=== PATIENT | female | born 1955 | race Caucasian/White ===

== ENCOUNTER 2017-05-02 14:01 | Emergency (ER) | payer OTHER ==
[~2017-05-02] VITALS: Ht 162.6 cm; Wt 104.3 kg
[~2017-05-02 14:01] MED LIST: ACYC400 PO; ALBU3IS INH; ASPI81EC; CALCA500CH; CIPR500 PO; Citrate Of Mag300 ML PO; Colace100 MG PO; Cyclobenzaprine5 MG PO; FEXO60 PO; FLUSAL1005 INH; FLUSAL2505 INH; GABA600 PO; HYDACE5 PO; HYDR1TAB94 PO; LOPE2C PO; METR500 PO; Nizoral15 GM TOP; Norco 10-325 T1 EACH PO; OXYACE5T PO; PRED10 PO; PSYL5.85P PO; VALCYCLOVIR PO; Ventolin/Prove6.7 GM INH
[2017-05-02 14:33] LABS: BASOPHILS ABSOLUTE AUTO 0.02 K/mm3 (0.00-0.23); BASOPHILS PERCENT AUTO 0 % (0-2); EOSINOPHILS ABSOLUTE AUTO 0.17 K/mm3 (0.00-0.68); EOSINOPHILS PERCENT AUTO 2 % (0-6); Hematocrit 43.7 % (33.0-51.0); Hemoglobin 14.7 g/dL (11.5-16.0); IMMATURE GRAN ABSOLUTE AUTO 0.02 K/mm3 (0.00-0.10); IMMATURE GRAN PERCENT AUTO 0 % (0-1); LYMPHOCYTES ABSOLUTE AUTO 3.01 K/mm3 (0.84-5.20); LYMPHOCYTES PERCENT AUTO 27 % (21-46); MONOCYTES ABSOLUTE AUTO 0.68 K/mm3 (0.16-1.47); MONOCYTES PERCENT AUTO 6 % (4-13); Mean Corpuscular HGB 29.6 pg (26.0-34.0); Mean Corpuscular HGB Conc 33.6 g/dL (31.5-36.5); Mean Corpuscular Volume 88 fL (80-100); Mean Platelet Volume 10.9 fL (9.1-12.4); NEUTROPHILS ABSOLUTE AUTO 7.19 K/mm3 (1.96-9.15); NEUTROPHILS PERCENT AUTO 65 % (41-73); Platelet Count 269 K/mm3 (150-400); RDW Coefficient Variation 14.4 % (11.7-14.2); RDW Standard Deviation 46.4 fL (35.1-46.3); Red Blood Cell Count 4.97 M/mm3 (3.80-5.20); White Blood Cell Count 11.09 K/mm3 (4.00-11.30)
[2017-05-02] MEDS ORDERED: Motion Sickness25 M1 PO (14:35)
[2017-05-02 14:50] LABS: Alanine Aminotransfer (ALT/SGP 30 U/L (12-78); Albumin, Blood 3.3 g/dL (3.4-5.0); Alk Phos 88 U/L (50-136); Anion Gap 5 mmol/L (6-16); Aspartate Aminotrans (AST/SGOT 20 U/L (12-37); Bilirubin, Total 0.4 mg/dL (0.1-1.0); Blood Urea Nitrogen 22 mg/dL (8-24); Bun/Creatinine Ratio 27.6 (12.0-20.0); CO2, Blood 26 mmol/L (21-32); Calcium, Blood 8.7 mg/dL (8.5-10.1); Chloride, Blood 110 mmol/L (98-108); Globulin, Blood 3.3 g/dL (2.2-4.0); Glomerular Filtration Rate >60 (60-); Glucose, Blood 95 mg/dL (70-99); Potassium, Blood 3.8 mmol/L (3.5-5.5); Sodium, Blood 141 mmol/L (136-145); Total Protein, Blood 6.6 g/dL (6.4-8.2); Troponin I <0.015 ng/mL (0.000-0.040)
== END 2017-05-02 15:10 | disposition home or self-care (01) ==
LOC: ER 14:01
PROVIDERS: Emergency Medicine
DX: R42 Dizziness and giddiness (principal); J44.9 Chronic obstructive pulmonary disease, unspecified; Z90.721 Acquired absence of ovaries, unilateral; Z88.6 Allergy status to analgesic agent; Z91.048 Other nonmedicinal substance allergy status; Z79.899 Other long term (current) drug therapy
CPT/HCPCS: 80053; 84484; 85025; 93005; 93010; 96374; 99283; J2405

== ENCOUNTER 2017-05-04 19:05 | Emergency (ER) | payer OTHER, SELFPAY ==
[~2017-05-04] VITALS: Ht 162.6 cm; Wt 103.4 kg
[~2017-05-04 19:05] MED LIST changes: +Motion Sickness25 M1 PO
[2017-05-04 19:47] LABS: BASOPHILS ABSOLUTE AUTO 0.02 K/mm3 (0.00-0.23); BASOPHILS PERCENT AUTO 0 % (0-2); EOSINOPHILS PERCENT AUTO 3 % (0-6); Hematocrit 46.4 % (33.0-51.0); Hemoglobin 15.1 g/dL (11.5-16.0); IMMATURE GRAN ABSOLUTE AUTO 0.02 K/mm3 (0.00-0.10); IMMATURE GRAN PERCENT AUTO 0 % (0-1); LYMPHOCYTES ABSOLUTE AUTO 3.88 K/mm3 (0.84-5.20); LYMPHOCYTES PERCENT AUTO 35 % (21-46); MONOCYTES ABSOLUTE AUTO 0.84 K/mm3 (0.16-1.47); MONOCYTES PERCENT AUTO 8 % (4-13); Mean Corpuscular HGB 29.4 pg (26.0-34.0); Mean Corpuscular HGB Conc 32.5 g/dL (31.5-36.5); Mean Corpuscular Volume 90 fL (80-100); Mean Platelet Volume 11.3 fL (9.1-12.4); NEUTROPHILS ABSOLUTE AUTO 6.17 K/mm3 (1.96-9.15); NEUTROPHILS PERCENT AUTO 55 % (41-73); Platelet Count 296 K/mm3 (150-400); RDW Coefficient Variation 14.6 % (11.7-14.2); RDW Standard Deviation 48.6 fL (35.1-46.3); Red Blood Cell Count 5.13 M/mm3 (3.80-5.20); White Blood Cell Count 11.23 K/mm3 (4.00-11.30)
[2017-05-04 20:10] LABS: Alanine Aminotransfer (ALT/SGP 34 U/L (12-78); Albumin, Blood 3.4 g/dL (3.4-5.0); Alk Phos 108 U/L (50-136); Anion Gap 6 mmol/L (6-16); Aspartate Aminotrans (AST/SGOT 29 U/L (12-37); Bilirubin, Total 0.5 mg/dL (0.1-1.0); Blood Urea Nitrogen 25 mg/dL (8-24); Bun/Creatinine Ratio 30.2 (12.0-20.0); CO2, Blood 26 mmol/L (21-32); Calcium, Blood 8.8 mg/dL (8.5-10.1); Chloride, Blood 110 mmol/L (98-108); Creatinine, Blood 0.83 mg/dL (0.40-1.00); Free Thyroxine 1.06 ng/dL (0.70-1.60); Globulin, Blood 3.3 g/dL (2.2-4.0); Glomerular Filtration Rate >60 (60-); Glucose, Blood 134 mg/dL (70-99); Potassium, Blood 4.1 mmol/L (3.5-5.5); Sodium, Blood 142 mmol/L (136-145); Total Protein, Blood 6.7 g/dL (6.4-8.2); Troponin I <0.015 ng/mL (0.000-0.040)
== END 2017-05-04 20:56 | disposition home or self-care (01) ==
LOC: ER 19:05
PROVIDERS: Internal Medicine
DX: I47.1 Supraventricular tachycardia (principal); F17.200 Nicotine dependence, unspecified, uncomplicated; Z91.048 Other nonmedicinal substance allergy status; Z88.6 Allergy status to analgesic agent; Z79.899 Other long term (current) drug therapy
CPT/HCPCS: 71020; 80053; 84439; 84443; 84484; 85025; 93005; 93010; 99284

== ENCOUNTER 2018-09-07 08:45 | Day surgery (SDC) | payer OTHER ==
[~2018-09-07] VITALS: Ht 162.6 cm; Wt 98.2 kg
[~2018-09-07 08:45] MED LIST changes: +CLARITIN10 MG PO; +Toprol Xl25 MG PO
== END 2018-09-07 10:55 | disposition home or self-care (01) ==
LOC: ORSCSDS 08:45
PROVIDERS: Internal Medicine Gastroenterology
PROC: 0DJD8ZZ Inspection of Lower Intestinal Tract, Via Natural or Artificial Opening Endoscopic (ICD-10-PCS; principal; 2018-09-07 10:00)
DX: Z12.11 Encounter for screening for malignant neoplasm of colon (principal); Z86.010 Personal history of colon polyps; K64.8 Other hemorrhoids; F17.210 Nicotine dependence, cigarettes, uncomplicated; J45.909 Unspecified asthma, uncomplicated; Z79.899 Other long term (current) drug therapy
CPT/HCPCS: J2704; J7120

== ENCOUNTER 2020-01-12 14:06 | Emergency (ER) | payer OTHER ==
[~2020-01-12] VITALS: Ht 162.6 cm; Wt 104.3 kg
[~2020-01-12 14:06] MED LIST changes: +CETI5 PO
[2020-01-12 14:43] LABS: BASOPHILS ABSOLUTE AUTO 0.06 K/mm3 (0.00-0.23); BASOPHILS PERCENT AUTO 1 % (0-2); EOSINOPHILS ABSOLUTE AUTO 0.16 K/mm3 (0.00-0.68); EOSINOPHILS PERCENT AUTO 2 % (0-6); Hematocrit 51.5 % (33.0-51.0); Hemoglobin 16.9 g/dL (11.5-16.0); IMMATURE GRAN ABSOLUTE AUTO 0.03 K/mm3 (0.00-0.10); IMMATURE GRAN PERCENT AUTO 0 % (0-1); LYMPHOCYTES ABSOLUTE AUTO 3.06 K/mm3 (0.84-5.20); LYMPHOCYTES PERCENT AUTO 28 % (21-46); MONOCYTES ABSOLUTE AUTO 0.73 K/mm3 (0.16-1.47); MONOCYTES PERCENT AUTO 7 % (4-13); Mean Corpuscular HGB 28.7 pg (26.0-34.0); Mean Corpuscular HGB Conc 32.8 g/dL (31.5-36.5); Mean Corpuscular Volume 87 fL (80-100); Mean Platelet Volume 10.9 fL (9.1-12.4); NEUTROPHILS ABSOLUTE AUTO 6.96 K/mm3 (1.96-9.15); NEUTROPHILS PERCENT AUTO 63 % (41-73); Platelet Count 322 K/mm3 (150-400); RDW Coefficient Variation 12.9 % (11.7-14.2); RDW Standard Deviation 41.4 fL (35.1-46.3); Red Blood Cell Count 5.89 M/mm3 (3.80-5.20)
[2020-01-12 15:04] LABS: Alanine Aminotransfer (ALT/SGP 25 U/L (12-78); Albumin, Blood 3.6 g/dL (3.4-5.0); Albumin/Globulin Ratio 0.9 (0.8-1.8); Alk Phos 108 U/L (50-136); Anion Gap 9 mmol/L (6-16); Aspartate Aminotrans (AST/SGOT 17 U/L (12-37); Bilirubin, Total 0.6 mg/dL (0.1-1.0); Blood Urea Nitrogen 14 mg/dL (8-24); Bun/Creatinine Ratio 22.7 (12.0-20.0); CO2, Blood 22 mmol/L (21-32); Chloride, Blood 111 mmol/L (98-108); Creatinine, Blood 0.62 mg/dL (0.40-1.00); Globulin, Blood 3.8 g/dL (2.2-4.0); Glomerular Filtration Rate >60 (60-); Glucose, Blood 114 mg/dL (70-99); Sodium, Blood 142 mmol/L (136-145); Total Protein, Blood 7.4 g/dL (6.4-8.2); Troponin I <0.015 ng/mL (0.000-0.040)
== END 2020-01-12 17:06 | disposition home or self-care (01) ==
LOC: ER 14:06
PROVIDERS: Physician Assistant
DX: I48.0 Paroxysmal atrial fibrillation (principal); Z88.8 Allergy status to other drugs, medicaments and biological substances; F17.210 Nicotine dependence, cigarettes, uncomplicated
CPT/HCPCS: 36415; 71046; 80053; 83880; 84484; 85025; 93005; 93010; 99285-25

== ENCOUNTER 2022-03-02 12:44 | Inpatient (IN) | payer OTHER ==
[~2022-03-02] VITALS: Ht 162.6 cm; Wt 108.0 kg
[~2022-03-02 12:44] MED LIST changes: +ADALAT CC30 M1 PO; +ELIQUIS5 M3 PO; +LASIX20 M2 PO; +METO25ER PO; +NEURONTIN300 MG PO; +POTCHL20ER PO; -Toprol Xl25 MG PO
[2022-03-02 13:32] LABS: BASOPHILS ABSOLUTE AUTO 0.05 K/mm3 (0.00-0.23); BASOPHILS PERCENT AUTO 0 % (0-2); EOSINOPHILS ABSOLUTE AUTO 0.23 K/mm3 (0.00-0.68); EOSINOPHILS PERCENT AUTO 2 % (0-6); Hematocrit 48.3 % (33.0-51.0); Hemoglobin 15.9 g/dL (11.5-16.0); IMMATURE GRAN ABSOLUTE AUTO 0.05 K/mm3 (0.00-0.10); IMMATURE GRAN PERCENT AUTO 0 % (0-1); LYMPHOCYTES ABSOLUTE AUTO 2.24 K/mm3 (0.84-5.20); LYMPHOCYTES PERCENT AUTO 16 % (21-46); MONOCYTES PERCENT AUTO 7 % (4-13); Mean Corpuscular HGB 27.7 pg (26.0-34.0); Mean Corpuscular HGB Conc 32.9 g/dL (31.5-36.5); Mean Corpuscular Volume 84 fL (80-100); Mean Platelet Volume 10.6 fL (9.1-12.4); NEUTROPHILS ABSOLUTE AUTO 10.27 K/mm3 (1.96-9.15); NEUTROPHILS PERCENT AUTO 74 % (41-73); Platelet Count 273 K/mm3 (150-400); RDW Coefficient Variation 17.9 % (11.7-14.2); RDW Standard Deviation 54.2 fL (35.1-46.3); Red Blood Cell Count 5.75 M/mm3 (3.80-5.20); White Blood Cell Count 13.84 K/mm3 (4.00-11.30)
[2022-03-02 13:45] LABS: Albumin, Blood 3.3 g/dL (3.4-5.0); Albumin/Globulin Ratio 0.8 (0.8-1.8); Bilirubin, Total 1.8 mg/dL (0.1-1.0); Bun/Creatinine Ratio 22.3 (12.0-20.0); Calcium, Blood 9.2 mg/dL (8.5-10.1); Creatinine, Blood 0.76 mg/dL (0.40-1.00); Potassium, Blood 4.4 mmol/L (3.5-5.5); Total Protein, Blood 7.3 g/dL (6.4-8.2)
[2022-03-02] MEDS ORDERED: FORMOTEROL20 MCG/2 M INH (15:45)
[2022-03-02 17:00] LABS: Influenza A, PCR NEGATIVE (NEGATIVE); Influenza B, PCR NEGATIVE (NEGATIVE); Resp Syncytial Virus, PCR NEGATIVE (NEGATIVE); SARS-Cov-2 (COVID-19) PCR, MMC NEGATIVE (NEGATIVE)
[2022-03-03 04:25] LABS: BASOPHILS ABSOLUTE AUTO 0.01 K/mm3 (0.00-0.23); BASOPHILS PERCENT AUTO 0 % (0-2); EOSINOPHILS PERCENT AUTO 0 % (0-6); Hematocrit 45.5 % (33.0-51.0); Hemoglobin 14.7 g/dL (11.5-16.0); IMMATURE GRAN ABSOLUTE AUTO 0.03 K/mm3 (0.00-0.10); IMMATURE GRAN PERCENT AUTO 0 % (0-1); LYMPHOCYTES ABSOLUTE AUTO 0.86 K/mm3 (0.84-5.20); LYMPHOCYTES PERCENT AUTO 11 % (21-46); MONOCYTES ABSOLUTE AUTO 0.06 K/mm3 (0.16-1.47); MONOCYTES PERCENT AUTO 1 % (4-13); Mean Corpuscular HGB 27.3 pg (26.0-34.0); Mean Corpuscular HGB Conc 32.3 g/dL (31.5-36.5); Mean Corpuscular Volume 84 fL (80-100); Mean Platelet Volume 10.3 fL (9.1-12.4); NEUTROPHILS ABSOLUTE AUTO 6.84 K/mm3 (1.96-9.15); NEUTROPHILS PERCENT AUTO 88 % (41-73); Platelet Count 235 K/mm3 (150-400); RDW Coefficient Variation 17.3 % (11.7-14.2); RDW Standard Deviation 53.6 fL (35.1-46.3); Red Blood Cell Count 5.39 M/mm3 (3.80-5.20)
[2022-03-03 04:51] LABS: Albumin, Blood 2.8 g/dL (3.4-5.0); Albumin/Globulin Ratio 0.8 (0.8-1.8); Bilirubin, Total 1.6 mg/dL (0.1-1.0); Bun/Creatinine Ratio 24.4 (12.0-20.0); Calcium, Blood 8.6 mg/dL (8.5-10.1); Creatinine, Blood 0.74 mg/dL (0.40-1.00); Globulin, Blood 3.5 g/dL (2.2-4.0); Potassium, Blood 4.1 mmol/L (3.5-5.5); Total Protein, Blood 6.3 g/dL (6.4-8.2)
[2022-03-03] MEDS ORDERED: NEBULI INH (09:43)
[2022-03-03] MEDS ORDERED: ZYRTEC10 M2 PO (09:47)
[2022-03-03] MEDS ORDERED: IPRAT-ALBUT 0.5-3 ML INH (09:50)
[2022-03-03] MEDS ORDERED: Vitamin D1000 UNI1 PO (09:51)
--- NOTE | 2022-03-03 09:52 | NUR ---
SUMMARY PT ADMITTED DURING SHIFT WITH TELE ORDERS SECONDARY TO CARDIAC HX AND AFIB WITH RVR ON ARRIVAL TO ER.PT HAS HX COPD AND SLEEP APNEA. PT WORE O2 LAST NIGHT SHE COULD NOT TOLERATE.
--- NOTE | 2022-03-03 14:30 | NUR ---
ELEVATED HR PER DAMPENER JEROME HUERTA PT'S HR HAS BEEN RANGING FROM 110-125 SINCE APPROXIMATELY 1330. PT DENIES CHEST PAIN AND OTHER VS ARE STABLE. DR. MIXON NOTIED OF INCREASE IN HR AND PLAN TO GIVE LOPRESSOR PER ORDER, BASED ON JEROME HUERTA STATING PT WAS SUSTAINING 113-120. UPON ENTERING ROOM TO GIVE MEDICATION PT'S HR WAS NOTED TO BE SLOWER ON CONTINUOUS PULSE OX THAN REPORTED. JEROME WAS CONTACTED AND HE REPORTED HR WAS CURRENTLY AVERAGING 110. DR. MIXON NOTIFIED AND STATED OK TO HOLD ON GIVING LOPRESSOR AT THIS TIME SINCE HR <120.
--- NOTE | 2022-03-03 14:38 | NUR ---
DR. MIXON NOTIFIED THAT PT IS REQUESTING A DOSE OF LASIX AND POTASSIUM TO START TODAY INSTEAD OF TOMORROW. DR. MIXON STATED HE WOULD REVIEW MEDICATIONS AND PLACE AND ORDER APPROPRIATE.
--- NOTE | 2022-03-03 19:28 | NUR ---
SHIFT SUMMARY PT REMAINS OVERNIGHT FOR POSSIBLE HERNIA REPAIR TOMORROW. PT IS GETTING MEDICATIONS FOR COPD EXACERBATION. PT IS A SBA WHEN OOB. PT HAS HAD ELEVATED HR THIS SHIFT ESPECIALLY WITH ACTIVITY, DR. KHAN IS AWARE. PT ASYMPTOMATIC OF ELEVATED HR. REPORT GIVEN TO CARLOS A BANDA.
--- NOTE | 2022-03-04 04:31 | NUR ---
SUMMARY PT HAS NO NEW ISSUES. PT DENIES ABD DISCOMFORT. PT REPORTS PASSING FLATUS. PT HAS BEEN VOIDING WELL IN THE BATHROOM. PT HAS BEEN USING HER HOME CPAP AND SLEEPING WELL. PT DENIES N/V AT THIS TIME. PT CURRENTLY AWAKE IN NO DISTRESS. CALL LIGHT IN REACH.
--- NOTE | 2022-03-04 11:45 | NUR ---
THE PATIENT WAS BROUGHT TO DAY SURGERY FOR HER PROCEDURE
--- NOTE | 2022-03-04 18:12 | NUR ---
SHIFT SUMMARY POD0 ABD HERNIA REPAIR, A/OX4, VSS, TOLERATING PO AFTER SURGERY, AMBULATING c SBA IN ROOM D/T SOB c EXERTION, PAIN MANAGED PER EMAR. PT RETURNED FROM PACU WITH ABD BINDER IN PLACE KEEPING NON ADHERANT DRESSING IN PLACE OVER LOWER ABD MIDLINE INCISION, ON 2L VIA NC c SATS > 92%. NO DRAINS NOTED. NO ACUTE EVENTS THIS SHIFT, CALL LIGHT IN REACH, WILL CTM AND REPORT TO ONCOMING NOC RN.
--- NOTE | 2022-03-05 05:42 | NUR ---
SUMMARY PT PAIN MANAGED WELL. PT AMBULATORY AND VOIDING WITHOUT ISSUE. PT DRESSING IS C/D/I. PT HAS SLEPT WELL WITH HER CPAP. PT CURRENTLY AWAKE AND IN GOOD DPIRITS. CALL [facility] IN REACH.
[2022-03-05 06:04] LABS: BASOPHILS ABSOLUTE AUTO 0.01 K/mm3 (0.00-0.23); BASOPHILS PERCENT AUTO 0 % (0-2); EOSINOPHILS ABSOLUTE AUTO 0.02 K/mm3 (0.00-0.68); EOSINOPHILS PERCENT AUTO 0 % (0-6); Hemoglobin 13.5 g/dL (11.5-16.0); IMMATURE GRAN ABSOLUTE AUTO 0.08 K/mm3 (0.00-0.10); IMMATURE GRAN PERCENT AUTO 0 % (0-1); LYMPHOCYTES ABSOLUTE AUTO 2.12 K/mm3 (0.84-5.20); LYMPHOCYTES PERCENT AUTO 12 % (21-46); MONOCYTES ABSOLUTE AUTO 1.58 K/mm3 (0.16-1.47); MONOCYTES PERCENT AUTO 9 % (4-13); Mean Corpuscular HGB 27.7 pg (26.0-34.0); Mean Corpuscular HGB Conc 32.1 g/dL (31.5-36.5); Mean Corpuscular Volume 86 fL (80-100); Mean Platelet Volume 11.3 fL (9.1-12.4); NEUTROPHILS ABSOLUTE AUTO 14.04 K/mm3 (1.96-9.15); NEUTROPHILS PERCENT AUTO 79 % (41-73); Platelet Count 259 K/mm3 (150-400); RDW Coefficient Variation 18.3 % (11.7-14.2); RDW Standard Deviation 57.4 fL (35.1-46.3); Red Blood Cell Count 4.88 M/mm3 (3.80-5.20); White Blood Cell Count 17.85 K/mm3 (4.00-11.30)
[2022-03-05 06:12] LABS: Albumin, Blood 2.9 g/dL (3.4-5.0); Bilirubin, Total 0.9 mg/dL (0.1-1.0); Bun/Creatinine Ratio 27.3 (12.0-20.0); Calcium, Blood 8.5 mg/dL (8.5-10.1); Creatinine, Blood 1.1 mg/dL (0.40-1.00); Potassium, Blood 3.8 mmol/L (3.5-5.5); Total Protein, Blood 5.9 g/dL (6.4-8.2)
--- NOTE | 2022-03-05 11:33 | NUR ---
Spiritual Care Visit. Pt. is sitting up on side of bed and welcomes my visit. Pt. is pleasant, and shares some complications with her COPD. Listen empathetically with a calming presence. Faciltate a life review that is peppered with family hardship and loss. When respritory therapy arrive the Pt. verbalized genuine gratitude for the spiritual care vist.
[2022-03-05] MEDS ORDERED: METAMUCIL POWD798 GM PO (14:51)
--- NOTE | 2022-03-05 15:44 | NUR ---
DISCHARGE SUMMARY POD1 VENTRAL HERNIA REPAIR, A/O X4, VSS, TOLERATING PO, AMBULATING INDEPENDENTLY, VOIDING WELL, ON RA c SATS > 92%, ABD BINDER IN PLACE WITH NON ADHERENT DRESSING OVER INCISION WHICH IS C/D/I, LUNGS DIMINISHED c EXPIRATORY WHEEZE T/O, DENIES SOB, HR ELEVATED IN LOW 100'S, PT ANXIOUS ABOUT BEING IN HOSPITAL. DISCUSSED DISCHARGE INFORMATION INCLUDING HOME CARE, MEDICATIONS, AND FOLLOW UP APPOINTMENTS. PT HAD NO QUESTIONS, IV REMOVED, PT ESCOREDT OUT VIA WC TO GO HOME.
== END 2022-03-05 16:00 | disposition home or self-care (01) | DRG 353 ==
LOC: ER 12:44 → SURS 18:54
PROVIDERS: Emergency Medicine; Nurse Practitioner Acute Care; Physician Assistant; Student in an Organized Health Care Education/Training Program; Surgery; ADMIT Internal Medicine
PROC: 0WUF0JZ Supplement Abdominal Wall with Synthetic Substitute, Open Approach (ICD-10-PCS; principal; 2022-03-04 12:30)
DX: K43.0 Incisional hernia with obstruction, without gangrene (principal); J96.01 Acute respiratory failure with hypoxia; J44.1 Chronic obstructive pulmonary disease with (acute) exacerbation; R65.10 Systemic inflammatory response syndrome (SIRS) of non-infectious origin without acute organ dysfunction; I50.22 Chronic systolic (congestive) heart failure; Z20.822 Contact with and (suspected) exposure to COVID-19; I48.0 Paroxysmal atrial fibrillation; S30.0XXA Contusion of lower back and pelvis, initial encounter; K21.9 Gastro-esophageal reflux disease without esophagitis; F17.210 Nicotine dependence, cigarettes, uncomplicated; M19.90 Unspecified osteoarthritis, unspecified site; Z93.3 Colostomy status; Z98.890 Other specified postprocedural states; Z90.721 Acquired absence of ovaries, unilateral; Z79.01 Long term (current) use of anticoagulants; Z79.899 Other long term (current) drug therapy; Z88.8 Allergy status to other drugs, medicaments and biological substances; W07.XXXA Fall from chair, initial encounter
CPT/HCPCS: 0241U; 36415; 71045; 74177; 80053; 83880; 84484; 85025; 93005; 93010; 94640; 94660; 94664; 94760; 94762; A9270; C1781; J0690; J1170; J2250; J2405; J2704; J2795; J2930; J3010; J7120; J7512; Q9967

== ENCOUNTER 2022-03-12 21:41 | Inpatient (IN) | payer OTHER ==
[~2022-03-12] VITALS: Ht 162.6 cm; Wt 111.1 kg
[~2022-03-12 21:41] MED LIST changes: +FORMOTEROL20 MCG/2 M INH; +IPRAT-ALBUT 0.5-3 ML INH; +METAMUCIL POWD798 GM PO; +NEBULI INH; +Vitamin D1000 UNI1 PO; +ZYRTEC10 M2 PO
[2022-03-12 21:55] LABS: BASOPHILS ABSOLUTE AUTO 0.04 K/mm3 (0.00-0.23); BASOPHILS PERCENT AUTO 0 % (0-2); EOSINOPHILS ABSOLUTE AUTO 0.28 K/mm3 (0.00-0.68); EOSINOPHILS PERCENT AUTO 2 % (0-6); Hematocrit 42.5 % (33.0-51.0); Hemoglobin 13.7 g/dL (11.5-16.0); IMMATURE GRAN ABSOLUTE AUTO 0.11 K/mm3 (0.00-0.10); IMMATURE GRAN PERCENT AUTO 1 % (0-1); LYMPHOCYTES PERCENT AUTO 19 % (21-46); MONOCYTES ABSOLUTE AUTO 1.03 K/mm3 (0.16-1.47); MONOCYTES PERCENT AUTO 8 % (4-13); Mean Corpuscular HGB 28.1 pg (26.0-34.0); Mean Corpuscular HGB Conc 32.2 g/dL (31.5-36.5); Mean Corpuscular Volume 87 fL (80-100); NEUTROPHILS ABSOLUTE AUTO 8.69 K/mm3 (1.96-9.15); NEUTROPHILS PERCENT AUTO 69 % (41-73); Platelet Count 340 K/mm3 (150-400); RDW Coefficient Variation 17.9 % (11.7-14.2); RDW Standard Deviation 56.8 fL (35.1-46.3); Red Blood Cell Count 4.88 M/mm3 (3.80-5.20); White Blood Cell Count 12.55 K/mm3 (4.00-11.30)
[2022-03-12 22:14] LABS: Albumin, Blood 2.6 g/dL (3.4-5.0); Albumin/Globulin Ratio 0.8 (0.8-1.8); Bilirubin, Total 0.4 mg/dL (0.1-1.0); Bun/Creatinine Ratio 21.4 (12.0-20.0); Calcium, Blood 8.2 mg/dL (8.5-10.1); Creatinine, Blood 0.89 mg/dL (0.40-1.00); Globulin, Blood 3.4 g/dL (2.2-4.0); Potassium, Blood 3.9 mmol/L (3.5-5.5)
[2022-03-13] MEDS ORDERED: ACYCLOVIR800 MG PO (00:48)
[2022-03-13] MEDS ORDERED: [UNRECOGNIZED DRUG - OTHER] INH (01:04)
[2022-03-13] MEDS ORDERED: BUDESONIDE INH (01:04)
--- NOTE | 2022-03-13 04:45 | NUR ---
PATIENT ARRIVED TO FLOOR APPROX 0135 TRANSFERRED TO BED WITH ASSISTANCE OF TOBACCO CURER AND ED STAFF. PT AOX4, O2 RA, HR ST, O2 CONT MONITORED, REMOTE TELEMETRY, PT. LUNG SOUNDS CLEAR, SOB AT REST AND WITH ACTIVITY, RT IN ROOM, TWO PERSON SKIN CHECK. SHINGLES BLISTERS NOTED ON RIGHT BUTTOCK AND LUMBAR AREA ABOVE GLUTEAL FOLD. LUMBER HACKER NOTIFIED. TRANSPARENT DRESSING PLACED OVER SHINGLES BLISTERS. BLISTERS ARE NOT FULLY DRY AND SCABBED. NOTIFIED LUMBER HACKER. PRECAUTIONS TO BE DETERMINED BY INFECTION CONTROL. CURRENTLY CONTACT PRECAUTIONS. PT. REPORTS PAIN IN RIGHT BUTTOCK AND TAILBONE R/T FALL AT HOME. PT HAS MIDLINE INCISION HEALING AFTER SURGERY DURING PREVIOUS ADMIT. DRESSIND CDI. INCISION NO S/SX OF RENESS OR INFECTION SUTURES/JESSE HAVE BEEN REMOVED. ORIENTED PT TO ROOM AND USE OF CALL LIGHT. FLUIDS IN REACH. BED LOCKED AND LOW.
[2022-03-13 07:04] LABS: BASOPHILS ABSOLUTE AUTO 0.02 K/mm3 (0.00-0.23); BASOPHILS PERCENT AUTO 0 % (0-2); EOSINOPHILS PERCENT AUTO 0 % (0-6); Hematocrit 45.3 % (33.0-51.0); Hemoglobin 14.4 g/dL (11.5-16.0); IMMATURE GRAN ABSOLUTE AUTO 0.09 K/mm3 (0.00-0.10); IMMATURE GRAN PERCENT AUTO 1 % (0-1); LYMPHOCYTES ABSOLUTE AUTO 0.74 K/mm3 (0.84-5.20); LYMPHOCYTES PERCENT AUTO 7 % (21-46); MONOCYTES ABSOLUTE AUTO 0.08 K/mm3 (0.16-1.47); MONOCYTES PERCENT AUTO 1 % (4-13); Mean Corpuscular HGB 27.6 pg (26.0-34.0); Mean Corpuscular HGB Conc 31.8 g/dL (31.5-36.5); Mean Corpuscular Volume 87 fL (80-100); Mean Platelet Volume 10.5 fL (9.1-12.4); NEUTROPHILS ABSOLUTE AUTO 9.35 K/mm3 (1.96-9.15); NEUTROPHILS PERCENT AUTO 91 % (41-73); Platelet Count 367 K/mm3 (150-400); RDW Coefficient Variation 17.8 % (11.7-14.2); RDW Standard Deviation 56.4 fL (35.1-46.3); Red Blood Cell Count 5.22 M/mm3 (3.80-5.20); White Blood Cell Count 10.28 K/mm3 (4.00-11.30)
[2022-03-13 07:20] LABS: Albumin, Blood 2.8 g/dL (3.4-5.0); Albumin/Globulin Ratio 0.8 (0.8-1.8); Bilirubin, Total 0.5 mg/dL (0.1-1.0); Bun/Creatinine Ratio 23.5 (12.0-20.0); Calcium, Blood 8.3 mg/dL (8.5-10.1); Creatinine, Blood 0.72 mg/dL (0.40-1.00); Globulin, Blood 3.7 g/dL (2.2-4.0); Potassium, Blood 3.7 mmol/L (3.5-5.5); Total Protein, Blood 6.5 g/dL (6.4-8.2)
--- NOTE | 2022-03-13 07:25 | NUR ---
TWO RN SKIN CHECK ASHLEY RN AND JEANIE BANDA.
--- NOTE | 2022-03-13 09:45 | NUR ---
MOVE TO ROOM 332: PATIENT MOVED TO NEGATIVE PRESSURE ROOM. REPORT GIVEN TO SHARRON Singh RN. DISCUSSED PATIENT'S HEART RATE AND THAT DR. NAIDU NEEDS TO BE NOTIFIED. PATIENT RESTING IN ROOM WITH AT THE BEDSIDE. PATIENT DENIES NEEDS CURRENTLY.
--- NOTE | 2022-03-13 18:27 | NUR ---
SHIFT SUMMARY PATIENT MEDICATED WITH SCHEDULED PAIN MEDICATION. PATIENT DENIES NAUSEA. PATIENT REPORTS SHORTNESS OF BREATH WITH ACTIVITY. PATIENT IS IND IN ROOM. PATIENT DOES NOT HAVE SHINGLES, PER DR. NAIDU AND HE DISCONTINUED ISOLATION. PATIENT IS EATING AND DRINKING WELL. PATIENT MET WITH CARE MANAGEMENT, SEE NOTES. PATIENT MET WITH RT FOR COPD EDUCATION. PATIENT IS PLEASANT AND COOPERATIVE WITH CARE.
--- NOTE | 2022-03-14 05:07 | NUR ---
SUMMARY: PATIENT DID WELL OVERNIGHT. SLIGHTLY ANXIOUS ABOUT HER MEDICATIONS AND WANTED TO SPEAK TO THE PROVIDER ABOUT HER DOSE OF PREDNISONE AND LASIX. WROTE NOTE FOR PROVIDER ON WHITEBOARD TO ADVOCATE FOR PATIENTS CONCERNS AND EASE HER ANXIETY. PATIENT REQUESTED CPAP OVERNIGHT SHE WEARS IT AT HOME. CALLED PROVIDER AND RT FOR ORDER. PATIENT RESTED WELL ON CPAP AND CONT PULSE OX MONITORING OVERNIGHT. NO ACUTE EVENTS. VSS. PATIENT VOIDING IN HAT FOR ACURATE IS + OS. RT GAVE PRN NEB TREATMENT.
[2022-03-14 05:28] LABS: Base Excess Venous 1.9 mmol/L; Bicarbonate Venous 26.3 mmol/L (24.0-30.0); PCO2 Venous 35.9 mmHg (38-42); pH Blood Venous 7.46 (7.34-7.37)
[2022-03-14 05:46] LABS: Hematocrit 43.7 % (33.0-51.0); Hemoglobin 14.2 g/dL (11.5-16.0); Mean Corpuscular HGB 28.1 pg (26.0-34.0); Mean Corpuscular HGB Conc 32.5 g/dL (31.5-36.5); Mean Corpuscular Volume 86 fL (80-100); Mean Platelet Volume 10.4 fL (9.1-12.4); Platelet Count 384 K/mm3 (150-400); RDW Coefficient Variation 18.3 % (11.7-14.2); RDW Standard Deviation 56.9 fL (35.1-46.3); Red Blood Cell Count 5.06 M/mm3 (3.80-5.20); White Blood Cell Count 28.44 K/mm3 (4.00-11.30)
[2022-03-14 06:07] LABS: Bun/Creatinine Ratio 29.6 (12.0-20.0); Calcium, Blood 9.2 mg/dL (8.5-10.1); Creatinine, Blood 0.71 mg/dL (0.40-1.00); Potassium, Blood 4.4 mmol/L (3.5-5.5)
[2022-03-14 06:35] LABS: BAND PERCENT MAN 5 % (0-8); BASOPHILS PERCENT MAN 0 % (0-2); EOSINOPHILS PERCENT MAN 0 % (0-6); LYMPHOCYTES ABSOLUTE MAN 2.27 K/mm3 (0.84-5.20); LYMPHOCYTES PERCENT MAN 8 % (21-46); MONOCYTES ABSOLUTE MAN 1.42 K/mm3 (0.16-1.47); MONOCYTES PERCENT MAN 5 % (4-13); NEUTROPHILS ABSOLUTE MAN 24.74 K/mm3 (1.96-9.15); SEG NEUTROPHILS PERCENT MAN 82 % (41-73); TOTAL CELLS COUNTED 100
[2022-03-14] MEDS ORDERED: VALA500 PO (12:10)
[2022-03-14] MEDS ORDERED: ALPR.25 PO (12:11)
[2022-03-14] MEDS ORDERED: SYMBICORT 160-4.6 GM INH (12:11)
[2022-03-14] MEDS ORDERED: BUSP5 PO (12:11)
[2022-03-14] MEDS ORDERED: TRELEGY ELLIPT1 EACH INH (12:48)
--- NOTE | 2022-03-14 13:59 | NUR ---
RN NOTE. DISCHARGE MS BONNER IS ALERT, ORIENTATED X4. UP TO BATHROOM INDEPENDENTLY BUT HAS SOB ON MINIMAL ACTIVITY. SHE GETS SOB ON TALKING, BUT TALKING IN FULL SENTENCES. C/O CHRONIC PAIN TO HER FEET CONTROLLED WITH MEDICATIONS. DISPLAYING SYMPTOMS OF ANXIETY AND SHE SAID SHE FEELS LIKE SHE HAS ANXIETY. PT DISCUSSED WITH DR NAIDU AND WAS DISCHARGED WITH NEW PRESCRIPTIONS. PIV REMOVED INTACT AND PT ESCORTED VIA W/C TO MEET HER FOR DISCHARGE AT 1350HRS. SHE VERBALISED GOOD UNDERSTANDING OF VERBAL AND WRITTEN DISCHARGE INSTRUCTIONS.
== END 2022-03-14 13:51 | disposition home or self-care (01) | DRG 189 ==
LOC: ER 21:41 → MEDS 21:42
PROVIDERS: Family Medicine; Internal Medicine; Physician Assistant; ADMIT Internal Medicine
PROC: 5A09357 Assistance with Respiratory Ventilation, Less than 24 Consecutive Hours, Continuous Positive Airway Pressure (ICD-10-PCS; principal; 2022-03-13)
DX: J96.01 Acute respiratory failure with hypoxia (principal); J44.1 Chronic obstructive pulmonary disease with (acute) exacerbation; I48.20 Chronic atrial fibrillation, unspecified; I50.22 Chronic systolic (congestive) heart failure; K46.0 Unspecified abdominal hernia with obstruction, without gangrene; Z68.41 Body mass index [BMI] 40.0-44.9, adult; D72.829 Elevated white blood cell count, unspecified; B00.9 Herpesviral infection, unspecified; F17.210 Nicotine dependence, cigarettes, uncomplicated; F41.9 Anxiety disorder, unspecified; Z20.822 Contact with and (suspected) exposure to COVID-19; Z98.890 Other specified postprocedural states; Z88.8 Allergy status to other drugs, medicaments and biological substances; Z79.51 Long term (current) use of inhaled steroids; Z79.891 Long term (current) use of opiate analgesic; Z79.01 Long term (current) use of anticoagulants; Z79.899 Other long term (current) drug therapy; Z93.3 Colostomy status
CPT/HCPCS: 36415; 71045; 80048; 80053; 82803; 83880; 85025; 93005; 93010; 94640; 94644; 94660; 94664; 94667; 94760; 94762; 96376; 98960; A9270; G0378; J2930; J7512

== ENCOUNTER 2022-04-09 11:00 | Inpatient (IN) | payer OTHER ==
[~2022-04-09] VITALS: Ht 162.6 cm; Wt 111.7 kg
[~2022-04-09 11:00] MED LIST changes: +ACYCLOVIR800 MG PO; +ALPR.25 PO; +BUDESONIDE INH; +BUSP5 PO; +SYMBICORT 160-4.6 GM INH; +TRELEGY ELLIPT1 EACH INH; +VALA500 PO; +[UNRECOGNIZED DRUG - OTHER] INH
[2022-04-09 11:49] LABS: BASOPHILS ABSOLUTE AUTO 0.05 K/mm3 (0.00-0.23); BASOPHILS PERCENT AUTO 0 % (0-2); EOSINOPHILS ABSOLUTE AUTO 0.16 K/mm3 (0.00-0.68); EOSINOPHILS PERCENT AUTO 1 % (0-6); Hemoglobin 12.5 g/dL (11.5-16.0); IMMATURE GRAN ABSOLUTE AUTO 0.04 K/mm3 (0.00-0.10); IMMATURE GRAN PERCENT AUTO 0 % (0-1); LYMPHOCYTES ABSOLUTE AUTO 2.35 K/mm3 (0.84-5.20); LYMPHOCYTES PERCENT AUTO 20 % (21-46); MONOCYTES ABSOLUTE AUTO 1.05 K/mm3 (0.16-1.47); MONOCYTES PERCENT AUTO 9 % (4-13); Mean Corpuscular HGB 27.5 pg (26.0-34.0); Mean Corpuscular HGB Conc 32.1 g/dL (31.5-36.5); Mean Corpuscular Volume 86 fL (80-100); Mean Platelet Volume 9.9 fL (9.1-12.4); NEUTROPHILS ABSOLUTE AUTO 7.89 K/mm3 (1.96-9.15); NEUTROPHILS PERCENT AUTO 68 % (41-73); Platelet Count 361 K/mm3 (150-400); RDW Coefficient Variation 16.2 % (11.7-14.2); RDW Standard Deviation 50.4 fL (35.1-46.3); Red Blood Cell Count 4.54 M/mm3 (3.80-5.20); White Blood Cell Count 11.54 K/mm3 (4.00-11.30)
[2022-04-09 12:12] LABS: Albumin/Globulin Ratio 0.8 (0.8-1.8); Bilirubin, Total 2.4 mg/dL (0.1-1.0); Bun/Creatinine Ratio 19.8 (12.0-20.0); Calcium, Blood 8.9 mg/dL (8.5-10.1); Creatinine, Blood 0.81 mg/dL (0.40-1.00); Globulin, Blood 3.8 g/dL (2.2-4.0); Potassium, Blood 4.7 mmol/L (3.5-5.5); Total Protein, Blood 6.8 g/dL (6.4-8.2)
[2022-04-09 13:56] LABS: Influenza A, PCR NEGATIVE (NEGATIVE); Influenza B, PCR NEGATIVE (NEGATIVE); Resp Syncytial Virus, PCR NEGATIVE (NEGATIVE); SARS-Cov-2 (COVID-19) PCR, MMC NEGATIVE (NEGATIVE)
--- NOTE | 2022-04-09 18:17 | NUR ---
PCU ADMIT / END OF SHIFT NOTE PT BROUGHT TO PCU-07 BY VIKASH FROM ER @ APPROX 1700. PT A&O X4, ABLE TO STAND & AMBULATE FROM [facility] TO PCU BED. PT VSS. PT RESPIRATIONS LABORED. SPO2 > 92% ON RA. PT REPORTS INABILITY TO BREATHE IF SHE LAYS FLAT. PT REPORTING WEARING CPAP AT HOME AT NIGHT. TELEMETRY SHOWING AFIB, HR 130s-150s UPON ARRIVAL. IV LOPRESSOR GIVEN PER EMAR W/ PT HR DECREASE TO 110s-130s. HENRY CATH INSERTED IN ER, DRAINING CLEAR YELLOW URINE. PT REPORTING "HEALED HERPES ZOSTER" SPOTS & PT STATES "IT'S NOT CONTAGIOUS ANYMORE."
--- NOTE | 2022-04-10 00:33 | NUR ---
ASSUMPTION OF CARE: NEURO: ALERT AND ORIENTED, VERY ANXIOUS ABLE TO MAKE NEEDS KNOWN USES THE CALL LIGHT FREQUENTLY. PULM: CPAP NO BLEED IN AT HS, NC 2-3L VIA NC CURRNELTY ON CPAP UNSURE OF SETTINGS. SPO2 >94% AT THIS TIME. CARDIAC: AFIB 120'S - 130'S DURING ASSUMPTION CURRELNTY UPPER 90'S TO 110'S AFTER RECIEVING SO FAR 10MG OF METOPROLOL IV PUSH. BLOOD PRESSURE NORMOTENSIVE FOR PATIENT GI/ ABLE TO BE SBA TO BSC HENRY REMOVED DURING START OF THIS RN SHIFT. CONTINENT AT THIS TIME. NO CONCERNS FROM THIS RN AT THIS TIME WILL CONTINUE TO MONITOR UNTIL SHIFT CHANGE. PATIENT HAS NO CONCERNS AT THIS TIME.
--- NOTE | 2022-04-10 05:47 | NUR ---
SHIFT SUMMARY PT IS A&OX4 BUT IS ANXIOUS. SHE HAS BEEN SLEEPING MOST OF THE NIGHT, BUT HAD SOME ANXIETY AND INSISTED ON SITTING ON THE SIDE OF THE BED. SHE HAS BEEN ON 3L NC T/O THE NIGHT W/ SP02 >90%, ON TELE SHE HAS BEEN AFIB 100-130, SHE DENIES ANGINA AND SOB AT THIS TIME. BED IN LOW, CALL LIGHT IN REACH. WILL CONTINUE TO MONITOR UNTL SHIFT REPORT IS GIVEN TO THE ONCOMING SHIFT RN. SEE NOTES FOR ANY UPDATES.
[2022-04-10 06:36] LABS: BASOPHILS ABSOLUTE AUTO 0.01 K/mm3 (0.00-0.23); BASOPHILS PERCENT AUTO 0 % (0-2); EOSINOPHILS PERCENT AUTO 0 % (0-6); Hematocrit 40.4 % (33.0-51.0); Hemoglobin 12.6 g/dL (11.5-16.0); IMMATURE GRAN ABSOLUTE AUTO 0.03 K/mm3 (0.00-0.10); IMMATURE GRAN PERCENT AUTO 0 % (0-1); LYMPHOCYTES ABSOLUTE AUTO 1.29 K/mm3 (0.84-5.20); LYMPHOCYTES PERCENT AUTO 17 % (21-46); MONOCYTES ABSOLUTE AUTO 0.28 K/mm3 (0.16-1.47); MONOCYTES PERCENT AUTO 4 % (4-13); Mean Corpuscular HGB 27.3 pg (26.0-34.0); Mean Corpuscular HGB Conc 31.2 g/dL (31.5-36.5); Mean Corpuscular Volume 87 fL (80-100); Mean Platelet Volume 10.4 fL (9.1-12.4); NEUTROPHILS ABSOLUTE AUTO 6.19 K/mm3 (1.96-9.15); NEUTROPHILS PERCENT AUTO 79 % (41-73); Platelet Count 318 K/mm3 (150-400); RDW Coefficient Variation 16.1 % (11.7-14.2); RDW Standard Deviation 51.3 fL (35.1-46.3); Red Blood Cell Count 4.62 M/mm3 (3.80-5.20)
[2022-04-10 06:57] LABS: Albumin, Blood 2.7 g/dL (3.4-5.0); Albumin/Globulin Ratio 0.8 (0.8-1.8); Bilirubin, Total 1.9 mg/dL (0.1-1.0); Bun/Creatinine Ratio 26.2 (12.0-20.0); Calcium, Blood 8.8 mg/dL (8.5-10.1); Creatinine, Blood 0.96 mg/dL (0.40-1.00); Globulin, Blood 3.6 g/dL (2.2-4.0); Magnesium, Blood 2.2 mg/dL (1.6-2.4); Potassium, Blood 4.6 mmol/L (3.5-5.5); Total Protein, Blood 6.3 g/dL (6.4-8.2)
[2022-04-10] MEDS ORDERED: AZIT250 PO (12:23)
[2022-04-10] MEDS ORDERED: Ventolin5 MG/1 ML INH (12:28)
[2022-04-10] MEDS ORDERED: PROAIR RESPICL90 MCG INH (13:30)
--- NOTE | 2022-04-10 14:40 | NUR ---
DISCHARGE HOME PT A&O X4. VSS. SPO2 > 92% ON RA. MONITOR SHOWING AFIB, HR 100-130s. W/ ORDER FOR PT DISCHARGE. DISCHARGE INSTRUCTIONS REVIEWED W/ PT & SENT HOME W/ PT. PIV REMOVED. PT TAKEN OUT BY PCT IN WHEELCHAIR @ APPROX 1400.
== END 2022-04-10 14:20 | disposition home or self-care (01) | DRG 189 ==
LOC: ER 11:00 → PCU 15:21
PROVIDERS: Nurse Practitioner Acute Care; Student in an Organized Health Care Education/Training Program; ADMIT Internal Medicine
PROC: 5A09357 Assistance with Respiratory Ventilation, Less than 24 Consecutive Hours, Continuous Positive Airway Pressure (ICD-10-PCS; principal; 2022-04-09)
DX: J96.01 Acute respiratory failure with hypoxia (principal); I50.22 Chronic systolic (congestive) heart failure; J44.1 Chronic obstructive pulmonary disease with (acute) exacerbation; Z68.41 Body mass index [BMI] 40.0-44.9, adult; E87.3 Alkalosis; F41.1 Generalized anxiety disorder; I48.91 Unspecified atrial fibrillation; F17.210 Nicotine dependence, cigarettes, uncomplicated; E66.01 Morbid (severe) obesity due to excess calories; G47.33 Obstructive sleep apnea (adult) (pediatric); F51.5 Nightmare disorder; Z20.822 Contact with and (suspected) exposure to COVID-19; Z88.8 Allergy status to other drugs, medicaments and biological substances; Z99.81 Dependence on supplemental oxygen; Z79.899 Other long term (current) drug therapy; Z90.49 Acquired absence of other specified parts of digestive tract; Z79.51 Long term (current) use of inhaled steroids; Z79.2 Long term (current) use of antibiotics; Z79.01 Long term (current) use of anticoagulants; Z93.3 Colostomy status; Z98.890 Other specified postprocedural states
CPT/HCPCS: 0241U; 36415; 51702; 71046; 80053; 83735; 83880; 84145; 84484; 85025; 93005; 93010; 94640; 94644; 94660; 94664; 94760; 94762; A9270; J0456; J0696; J1940; J2930; J3475; J7050

== ENCOUNTER 2022-08-09 15:41 | Inpatient (IN) | payer OTHER ==
[~2022-08-09] VITALS: Ht 162.6 cm; Wt 98.2 kg
[~2022-08-09 15:41] MED LIST changes: +AZIT250 PO; +PROAIR RESPICL90 MCG INH; +Ventolin5 MG/1 ML INH
[2022-08-09 17:44] LABS: BASOPHILS ABSOLUTE AUTO 0.05 K/mm3 (0.00-0.23); BASOPHILS PERCENT AUTO 1 % (0-2); EOSINOPHILS ABSOLUTE AUTO 0.38 K/mm3 (0.00-0.68); EOSINOPHILS PERCENT AUTO 4 % (0-6); Hematocrit 31.4 % (33.0-51.0); Hemoglobin 9.4 g/dL (11.5-16.0); IMMATURE GRAN ABSOLUTE AUTO 0.03 K/mm3 (0.00-0.10); IMMATURE GRAN PERCENT AUTO 0 % (0-1); LYMPHOCYTES ABSOLUTE AUTO 1.95 K/mm3 (0.84-5.20); LYMPHOCYTES PERCENT AUTO 22 % (21-46); MONOCYTES ABSOLUTE AUTO 0.81 K/mm3 (0.16-1.47); MONOCYTES PERCENT AUTO 9 % (4-13); Mean Corpuscular HGB 22.2 pg (26.0-34.0); Mean Corpuscular HGB Conc 29.9 g/dL (31.5-36.5); Mean Corpuscular Volume 74 fL (80-100); Mean Platelet Volume 9.7 fL (9.1-12.4); NEUTROPHILS ABSOLUTE AUTO 5.87 K/mm3 (1.96-9.15); NEUTROPHILS PERCENT AUTO 65 % (41-73); Platelet Count 348 K/mm3 (150-400); RDW Coefficient Variation 21.2 % (11.7-14.2); RDW Standard Deviation 55.2 fL (35.1-46.3); Red Blood Cell Count 4.24 M/mm3 (3.80-5.20); White Blood Cell Count 9.09 K/mm3 (4.00-11.30)
[2022-08-09 18:05] LABS: Albumin, Blood 3.2 g/dL (3.4-5.0); Albumin/Globulin Ratio 0.9 (0.8-1.8); Bilirubin, Total 3.3 mg/dL (0.1-1.0); Bun/Creatinine Ratio 25.6 (12.0-20.0); Calcium, Blood 9.1 mg/dL (8.5-10.1); Creatinine, Blood 0.82 mg/dL (0.40-1.00); Globulin, Blood 3.5 g/dL (2.2-4.0); Potassium, Blood 4.4 mmol/L (3.5-5.5); Total Protein, Blood 6.7 g/dL (6.4-8.2)
[2022-08-10] MEDS ORDERED: Norco 5-325 Ta1 EACH PO (02:03)
[2022-08-10 04:03] LABS: BASOPHILS ABSOLUTE AUTO 0.01 K/mm3 (0.00-0.23); BASOPHILS PERCENT AUTO 0 % (0-2); EOSINOPHILS PERCENT AUTO 0 % (0-6); Hematocrit 31.7 % (33.0-51.0); Hemoglobin 9.4 g/dL (11.5-16.0); IMMATURE GRAN ABSOLUTE AUTO 0.07 K/mm3 (0.00-0.10); IMMATURE GRAN PERCENT AUTO 1 % (0-1); LYMPHOCYTES ABSOLUTE AUTO 0.51 K/mm3 (0.84-5.20); LYMPHOCYTES PERCENT AUTO 7 % (21-46); MONOCYTES ABSOLUTE AUTO 0.07 K/mm3 (0.16-1.47); MONOCYTES PERCENT AUTO 1 % (4-13); Mean Corpuscular HGB 21.8 pg (26.0-34.0); Mean Corpuscular HGB Conc 29.7 g/dL (31.5-36.5); Mean Corpuscular Volume 74 fL (80-100); Mean Platelet Volume 9.7 fL (9.1-12.4); NEUTROPHILS ABSOLUTE AUTO 6.69 K/mm3 (1.96-9.15); NEUTROPHILS PERCENT AUTO 91 % (41-73); Platelet Count 370 K/mm3 (150-400); RDW Coefficient Variation 21.4 % (11.7-14.2); RDW Standard Deviation 56.1 fL (35.1-46.3); Red Blood Cell Count 4.31 M/mm3 (3.80-5.20); White Blood Cell Count 7.35 K/mm3 (4.00-11.30)
[2022-08-10 04:29] LABS: Albumin, Blood 3.3 g/dL (3.4-5.0); Albumin/Globulin Ratio 0.8 (0.8-1.8); Bilirubin, Total 3.4 mg/dL (0.1-1.0); Bun/Creatinine Ratio 23.5 (12.0-20.0); Creatinine, Blood 0.77 mg/dL (0.40-1.00); Total Protein, Blood 7.3 g/dL (6.4-8.2)
--- NOTE | 2022-08-10 06:11 | NUR ---
SHIFT SUMMARY ASSUMED CARE OF PT AROUND 0200. PT IS A/OX4. HEART SOUNDS IRREGULAR. TELE SHOWED AFIB. LUNG SOUNDS CLEAR. PT STATES SHE USES CPAP SOMETIMES AT HOME BUT DOESNT WANT TO USE OURS BECAUSE IT DOESNT FIT WELL. PT NEEDED 1L NC DUE TO DESATURATING TO 85% WHILE SLEEPING. RT CONSULTED. PT WAS A 1P SBA WITH CORDS TO BATHROOM/BSC. URINE CLEAR AND YELLOW. PT C/O PAIN IN FEET, MEDICATED PER EMAR. PT DID NOT SLEEP WELL.
--- NOTE | 2022-08-10 15:23 | NUR ---
Pt resting in bed and is A&OX4. Pt denies pain, nausea at this time. She reports dyspnea has improved but still experiences SOB with exertion. Pt's spouse at bedside for part of the visit and then reports needing to get home. Pt reports living at home with spouse and has no children. Engaged in therpaeutic conversation regarding advanced care planning. Educated on disease process including trajectory. Discussed the importance of planning for the future and having routine conversations with PCP. Discussed code status wishes. Educated on life sustaining measures including risk factors and implications to CPR/Intubation. Pt reports information was helpful and will discuss further with her spouse. Continued supportive visit and answered questions. Palliative Care will remain available
--- NOTE | 2022-08-10 18:07 | NUR ---
SHIFT SUMMARY PT A&OX4. SP02>90% ON RA. TELEMETRY CURRENTLY SHOWS AFIB. CARDIZEM GTT TURNED OFF AT APPROX 0945. HOME DOSE ORAL METOPROLOL ORDERED BY MD MARQUEZ. PT'S HR MAINTAINED 100'S UNTIL AFTERNOON, THEN BEGAN INCREASING. PT PLACED BACK ON GTT AT 5. NOTIFIED MD MARQUEZ OF CARDIZEM RESTART, MD MARQUEZ W/ ORDERS FOR ADDITIONAL DOSE OF METOPROLOL, SEE EMAR. METOPROLOL GIVEN, DILT GTT TURNED OFF. HR CURRENTLY 100'S-110'S. PT DENIED PAIN. UP TO BATHROOM SBA TO VOID AND HAVE BM THIS SHIFT. ABX INFUSED PER EMAR. IN ROOM THIS AFTERNOON. PT SITTING ON SIDE OF BED, EATING DINNER. CALL LIGHT IN REACH.
[2022-08-11 04:35] LABS: Hematocrit 29.3 % (33.0-51.0); Hemoglobin 8.7 g/dL (11.5-16.0); Mean Corpuscular HGB 22.1 pg (26.0-34.0); Mean Corpuscular HGB Conc 29.7 g/dL (31.5-36.5); Mean Corpuscular Volume 75 fL (80-100); Mean Platelet Volume 9.9 fL (9.1-12.4); Platelet Count 339 K/mm3 (150-400); RDW Coefficient Variation 21.4 % (11.7-14.2); Red Blood Cell Count 3.93 M/mm3 (3.80-5.20); White Blood Cell Count 18.17 K/mm3 (4.00-11.30)
[2022-08-11 05:01] LABS: Bun/Creatinine Ratio 38.6 (12.0-20.0); Calcium, Blood 9.1 mg/dL (8.5-10.1); Creatinine, Blood 0.83 mg/dL (0.40-1.00); Percent Saturation 3.3 % (15.0-50.0); Potassium, Blood 4.4 mmol/L (3.5-5.5)
--- NOTE | 2022-08-11 07:17 | NUR ---
ASSUMED CARE: PT RESTING QUIETLY WITH 2L O2 VIA NC. AFIB 90S ON TELE AT THIS TIME. NIGHT RN STATES HR INCREASE TO 130S WITH ACTIVITY AND DYSPNEIC ON EXERTION. NO ACUTE NEEDS OR CONCERNS AT THIS TIME.
--- NOTE | 2022-08-11 18:41 | NUR ---
SHIFT SUMMARY: PT ON RA-2L FOR EXERTION. INDEPENDENT IN ROOM BUT SOB AND DESATTED INTO 80S ONCE TODAY WHEN ACCIDENTALLY REMOVED OXYGEN WHILE ORGANIZING ROOM. HR INCREASES INTO 120S WITH ACTIVITY AT TIMES. STARTED ON PO CARDIZEM THIS SHIFT. AT BEDSIDE FOR PART OF SHIFT. DENIES NEEDS OR CONCERNS AT THIS TIME.
[2022-08-12 03:45] LABS: Hematocrit 29.9 % (33.0-51.0); Hemoglobin 8.9 g/dL (11.5-16.0); Mean Corpuscular HGB Conc 29.8 g/dL (31.5-36.5); Mean Corpuscular Volume 74 fL (80-100); Mean Platelet Volume 10.1 fL (9.1-12.4); NRBC ABSOLUTE 0.03 K/mm3 (0.00-0.02); NRBC Auto 0.2 /100 WBC (0.0-0.2); Platelet Count 358 K/mm3 (150-400); RDW Coefficient Variation 21.2 % (11.7-14.2); Red Blood Cell Count 4.05 M/mm3 (3.80-5.20); White Blood Cell Count 14.16 K/mm3 (4.00-11.30)
[2022-08-12 04:13] LABS: Albumin, Blood 3.1 g/dL (3.4-5.0); Anion Gap 3 mmol/L (6-16); Blood Urea Nitrogen 35 mg/dL (8-24); Bun/Creatinine Ratio 43.6 (12.0-20.0); CO2, Blood 25 mmol/L (21-32); Chloride, Blood 110 mmol/L (98-108); Glomerular Filtration Rate 80 (60-); Glucose, Blood 124 mg/dL (70-99); Magnesium, Blood 2.1 mg/dL (1.6-2.4); Phosphorus, Blood 3.9 mg/dL (2.5-4.9); Sodium, Blood 138 mmol/L (136-145)
--- NOTE | 2022-08-12 05:24 | NUR ---
SHIFT SUMMARY PT IS A/Ox4 AND IS COOPERATIVE WITH CARE PROVIDED BY MEMBERS OF STAFF. ANSWERS QUESTIONS APPROPRIATLY AND ABLE TO MAKE HER NEEDS KNOWN. CARDIAC: PT HAD A 5 BEAT RUN OF VTACH EARLY ON IN THE SHIFT AND THEN ANOTHER 15 BEAT RUN SHORTLY AFTER MDN. PT WAS ASYMTOMATIC TO EITHER EVENT. NO COMPLAINS OF CP, PRESSURE, TIGHTNESS, WEAKNESS, OR PALPITATIONS. SOIL SAMPLER LAUREN MADE AWARE. REMAINS IN AFIB WITH HR RANGING 80-100'S. BP HAS BEEN STABLE T/O THE SHIFT. RESP.: MAINTAINS SPO2 >90% ON RA WITH INTERMITTENT EPISODES OF SOB, ESPECIALLY WITH EXERTION. RR RANGING 20-26, BUT PT RECOVERS VERY QUICKLY HOWEVER. PT WORE CPAP FOR MOST OF THE NIGHT, TOLERATED CPAP WELL. OCCASIONAL, BUT NON-PRODUCTIVE COUGH NOTED. MISC: ABLE TO ABULATE TO THE BATHROOM VIA SBA WITH NO COMPLAINTS OF WEAKNESS. NO NEW ORDERS AT THIS TIME, WILL REPORT TO DAYSHIFT SOLO. THALIA, T/O THE SHIFT
[2022-08-12 08:41] LABS: Stool Occult Blood Guaiac 1 Neg (Neg)
--- NOTE | 2022-08-12 15:02 | NUR ---
Received call from Pt's Primary RN Anjali reporting Pt would like to discuss her code status further. Spoke with RN Vidhya Patel and discussed case. Pt sitting on edge of bed upon arrival. Confirmed with Pt wishes to discuss code status further. Pt reports she would like to discuss this further and states her is on his way in. She requests we meet tomorrow to discuss further. Palliative Care will remain available
--- NOTE | 2022-08-12 17:12 | NUR ---
SHIFT SUMMARY PATIENT A/O X4. ANXIOUS AT TIMES. SOB WITH EXERTION, SATTING IN THE 90S ON RA. SHE DENIED A PALLIATIVE CARE CONSULT TODAY REQUESTING A VISIT TOMORROW TO DISCUSS CODE STATUS. PT PARTICIPATED IN A BEDBATH THIS AM. CALLS APPROPRIATELY. DENIES PAIN, TRANSFERS IND IN ROOM.
--- NOTE | 2022-08-13 00:12 | NUR ---
PT TX TO ROOM 208 FROM PCU 19. PT A/O, VSS, SATS >90% ON RA. LUNGS DIM/COARSE, PT REP OCC NON PROD COUGH. PT DENIES SOB AT REST, DOES BECOME MILDLY SOB W/TALKING. PT DECLINES NEED FOR RT TX AT THIS TIME. HR AFIB 87 PER TELE MONITOR. PT REP HX NEUROPATHY, REP SENSATION AT BASELINE, REP BLE PAIN IMPROVED AFTER MOST RECENT PAIN MED GIVEN. PT ORIENTED TO ROOM/CALL LIGHT. PLAN TO MONITOR AND TX PER ORDERS.
--- NOTE | 2022-08-13 03:30 | NUR ---
TRANSFER OF CARE NOTE GAVE REPORT TO DONA ANDRADE RN, ON SURGICAL FLOOR ABOUT 0001 THIS AM. ALL QUESTIONS ANSWERED. NO CHANGES SINCE SHIFT ASSESSMENT AT START OF SHIFT. SEE ASSESSMENT FOR MORE DETAILS. THALIA BABIN UPON TRANSFER.
--- NOTE | 2022-08-13 07:31 | NUR ---
PT VSS SINCE ARRIVING TO FLOOR; HR AFIB PER TELE MONITOR, PT DENIED CP/PRESSURE. SATS >90% ON RA. PT REP FEELING A LITTLE LESS SOB THIS AM, REP BLE EDEMA SOMEWHAT IMPROVED. PT UP IN ROOM W/SBA, DOES BECOME SOB W/EXERTION, RECOVERS QUICKLY. PT ANXIOUS AT TIMES, SUPPORT AND EDUCATION PRN.
--- NOTE | 2022-08-13 10:54 | NUR ---
PEG/PT IN TO SEE PTGloria
--- NOTE | 2022-08-13 15:30 | NUR ---
Pt resting in bed upon arrival. Pt appear mildly dyspneic as evidenced by ability to speak in 2 to 3 word sentences only. Pt confirms wanting to discuss her code status wishes. Offered therapeutic listening and answered questions. Pt reports wanting to be a DNR and still wants to come to the hospital for treatment if needed. Assisted Pt with completing POLST form reflecting these wishes. No other concerns at this time. Spoke with Primary RN Mario, Belt Back Operator, and discussed case. Spoke with Dr Blanco and discussed case. Placed order for DNR per V/O from Dr Blanco. Palliative Care will obtain copy of POLST upon physician signature and deliver to medical records.
--- NOTE | 2022-08-13 15:59 | NUR ---
turned over care to andreea sheldon rn
--- NOTE | 2022-08-13 16:03 | NUR ---
CARE ASSUMED AT 1600. PT SITTING AT THE EDGE OF THE BED. SHE APPEARS IN GOOD SPIRITS. SHE DENIES PAIN AT TIME OF BEDSIDE REPORT. WILL MONITOR FOR CHANGES.
--- NOTE | 2022-08-13 17:13 | NUR ---
Spiritual Care Visit. Pt. is awake and welcomes my visit. Pt. is pleasant and displays evidence of enjoying conversation. Facilitate a life review and listen with empathy and an engaged presence. Pt. verbalized her understanding regarding her health and displayed evidence of engagement and awareness. Matters of beverly and belief are discussed. Prayed with Pt. Pt. displayed evidence of being uplifted and encouraged, and verbalized gratitude for the spiritual care visit.
--- NOTE | 2022-08-13 18:37 | NUR ---
SHIFT SUMMARY NO CHANGES TO REPORT SINCE CARE ASSUMED. PT WAS GIVEN DIURETICS THIS EVENING, SHE APPEARS TO BE TOLERATING WELL. WILL MONITOR UNTIL REPORT TO NOC RN.
[2022-08-14 05:57] LABS: Bun/Creatinine Ratio 46.7 (12.0-20.0); Calcium, Blood 8.9 mg/dL (8.5-10.1); Creatinine, Blood 0.9 mg/dL (0.40-1.00); Potassium, Blood 3.2 mmol/L (3.5-5.5)
--- NOTE | 2022-08-14 06:17 | NUR ---
PT VSS T/O NIGHT. SATS >90% ON RA, MAINTAINED >90% WHEN SLEEPING. PT REP FEELING LESS SOB THIS AM. LUNGS CLEAR/DIM. BLE EDEMA 1+ THIS AM, PT REP SENSATION AT BASELINE. PT REP FEELING ANXIOUS AT TIMES, SUPPORT AND EDUCATION PRN.
[2022-08-14] MEDS ORDERED: FURO40 PO (11:58)
[2022-08-14] MEDS ORDERED: POTCHL20ER PO (12:00)
[2022-08-14] MEDS ORDERED: GUAI600T33 PO (12:01)
[2022-08-14] MEDS ORDERED: METO2.5 PO (12:02)
[2022-08-14] MEDS ORDERED: LOSA25 PO (12:02)
[2022-08-14] MEDS ORDERED: MIRALAX17 GM PO (12:03)
[2022-08-14] MEDS ORDERED: PRED20 PO (12:04)
[2022-08-14] MEDS ORDERED: FERRIC X-150150 M1 PO (12:04)
[2022-08-14] MEDS ORDERED: AERONEB GO NEB1 EACH INH (12:05)
--- NOTE | 2022-08-14 14:57 | NUR ---
DISCHARGE PATIENT EATING, DRINKING, & VOIDING WELL. VSS ON RA. PATIENT DENIES SOB/DIFFICULTY BREATHING, RESPIRATIONS EVEN & UNLABORED, DOES NOT APPEAR TO BE IN ANY RESPIRATORY DISTRESS. AMBULATING WELL, UP IN ROOM INDEPENDENTLY TO BATHROOM/CHAIR/BED. DISCUSSED DISCHARGE INSTRUCTIONS & MEDICATION CHANGES. SENT WITH PATIENT. RX'S SENT TO [facility]. ESCORTED OUT VIA W/C.
== END 2022-08-14 14:49 | disposition home or self-care (01) | DRG 291 ==
LOC: ER 15:41 → PCU 15:42 → SURS 08-12 23:55
PROVIDERS: Family Medicine; Internal Medicine; Physician Assistant; ADMIT Internal Medicine
PROC: 5A09357 Assistance with Respiratory Ventilation, Less than 24 Consecutive Hours, Continuous Positive Airway Pressure (ICD-10-PCS; principal; 2022-08-09)
DX: I11.0 Hypertensive heart disease with heart failure (principal); I50.43 Acute on chronic combined systolic (congestive) and diastolic (congestive) heart failure; J44.1 Chronic obstructive pulmonary disease with (acute) exacerbation; I48.91 Unspecified atrial fibrillation; E80.6 Other disorders of bilirubin metabolism; I27.20 Pulmonary hypertension, unspecified; D50.9 Iron deficiency anemia, unspecified; F41.9 Anxiety disorder, unspecified; G47.33 Obstructive sleep apnea (adult) (pediatric); Z99.81 Dependence on supplemental oxygen; Z68.38 Body mass index [BMI] 38.0-38.9, adult; Z88.8 Allergy status to other drugs, medicaments and biological substances; Z79.899 Other long term (current) drug therapy; Z79.2 Long term (current) use of antibiotics; Z79.51 Long term (current) use of inhaled steroids; Z79.01 Long term (current) use of anticoagulants; Z93.3 Colostomy status; Z98.890 Other specified postprocedural states; Z87.891 Personal history of nicotine dependence
CPT/HCPCS: 36415; 71046; 80048; 80053; 80069; 82272; 82728; 83540; 83550; 83735; 83880; 85025; 85027; 93005; 93010; 93306; 94640; 94644; 94660; 94664; 94760; 94762; 96374; 96375; 97116; 97162; 97165; 97530; 99285-25; A9270; J0696; J1940; J2930; J3475; J7030; J7512

== ENCOUNTER 2022-08-18 17:07 | Observation (INO) | payer OTHER ==
[~2022-08-18] VITALS: Ht 162.6 cm; Wt 91.4 kg
[~2022-08-18 17:07] MED LIST changes: +AERONEB GO NEB1 EACH INH; +FERRIC X-150150 M1 PO; +FURO20 PO; +GUAI600T33 PO; +LOSA25 PO; +METO2.5 PO; +MIRALAX17 GM PO; +Norco 5-325 Ta1 EACH PO; +PRED20 PO
[2022-08-18 17:55] LABS: BASOPHILS ABSOLUTE AUTO 0.05 K/mm3 (0.00-0.23); BASOPHILS PERCENT AUTO 0 % (0-2); EOSINOPHILS PERCENT AUTO 3 % (0-6); Hematocrit 41.3 % (33.0-51.0); Hemoglobin 12.5 g/dL (11.5-16.0); IMMATURE GRAN ABSOLUTE AUTO 0.08 K/mm3 (0.00-0.10); IMMATURE GRAN PERCENT AUTO 1 % (0-1); LYMPHOCYTES ABSOLUTE AUTO 2.56 K/mm3 (0.84-5.20); LYMPHOCYTES PERCENT AUTO 17 % (21-46); MONOCYTES ABSOLUTE AUTO 1.65 K/mm3 (0.16-1.47); MONOCYTES PERCENT AUTO 11 % (4-13); Mean Corpuscular HGB 21.5 pg (26.0-34.0); Mean Corpuscular HGB Conc 30.3 g/dL (31.5-36.5); Mean Corpuscular Volume 71 fL (80-100); Mean Platelet Volume 9.5 fL (9.1-12.4); NEUTROPHILS ABSOLUTE AUTO 10.61 K/mm3 (1.96-9.15); NEUTROPHILS PERCENT AUTO 69 % (41-73); Platelet Count 536 K/mm3 (150-400); RDW Coefficient Variation 21.5 % (11.7-14.2); Red Blood Cell Count 5.81 M/mm3 (3.80-5.20); White Blood Cell Count 15.35 K/mm3 (4.00-11.30)
[2022-08-18 18:14] LABS: Albumin, Blood 3.4 g/dL (3.4-5.0); Albumin/Globulin Ratio 0.9 (0.8-1.8); Bilirubin, Total 1.8 mg/dL (0.1-1.0); Bun/Creatinine Ratio 47.3 (12.0-20.0); Calcium, Blood 9.2 mg/dL (8.5-10.1); Creatinine, Blood 1.29 mg/dL (0.40-1.00); Globulin, Blood 3.8 g/dL (2.2-4.0); Potassium, Blood 3.8 mmol/L (3.5-5.5); Total Protein, Blood 7.2 g/dL (6.4-8.2)
[2022-08-18] MEDS ORDERED: FERROUS SULFAT325 M3 PO (19:08)
[2022-08-18] MEDS ORDERED: Ventolin5 MG/1 ML INH (19:10)
[2022-08-18 20:35] LABS: Source, Urine Straight Cath
[2022-08-18 20:39] LABS: Appearance, Urine Clear (Clear); Bilirubin, Urine Neg (Neg); Blood, Urine Neg (Neg); Color, Urine Yellow (P-Yellow); Glucose Qualitative, Urine Neg (Neg); Ketones, Urine Neg (Neg); Leukocyte Esterase, Urine Neg (Neg); Nitrite, Urine Neg (Neg); Protein, Urine Neg (Neg); Specific Gravity, Urine 1.015 (1.003-1.022); Urobilinogen, Urine NORM (Normal)
[2022-08-19] VITALS (25 sets, daily range): BP systolic 83–117; BP diastolic 47–86
[2022-08-19 04:18] LABS: Bun/Creatinine Ratio 47.6 (12.0-20.0); Calcium, Blood 8.8 mg/dL (8.5-10.1); Creatinine, Blood 1.03 mg/dL (0.40-1.00); Potassium, Blood 2.9 mmol/L (3.5-5.5)
--- NOTE | 2022-08-19 07:15 | NUR ---
CROSSING SUPERVISOR SUMMARY ASSUMED CARE OF THE PT AFTER ADMIT FROM ER. PT IS ALERT AND ORIENTED X4, ABLE TO MAKE NEEDS KNOWN. HER BP CONTINUES TO REMAIN LOW, MAPS RANGING FROM 55 TO 65. GIVEN A DOSE OF PO MIDODRINE WITH SOME IMPROVEMENT. ON 100 ML/HR NS INFUSION. PT MEDICATED X1 WITH NORCO, CHRONIC PAIN MEDICATION. PT HAS BEEN AFIB IN THE 70S AND 80S. SATURATION REMAINS >92%. PT IS SBA TO BSC, DENIES ANY COMPLAINTS OF DIZZINESS THIS SHIFT.
--- NOTE | 2022-08-19 12:40 | NUR ---
Upon receiving a referral for spiritual care, I visit the patient. Patient talks about her medical problems and the plan of care moving forward. She shares about her family and how her spouse, struggles when she is hospitalized. Patient tells me that she is bored and so she appreciaties the visit. I normalize her experience and provide therapeutic listening, anxiety containement and prayer. Patient responded well and showed signs of reduced stress. I will continue to remain available to patient and family.
--- NOTE | 2022-08-19 18:51 | NUR ---
SHIFT SUMMARY OVERALL, AN UNEVENTFUL SHIFT. PT A/O X4. SHE WAS PLEASANT AND COOPERATIVE WITH ALL CARE. PT REMAINS IN AFIB ON TELEMETRY, WITH A STABLE RATE IN THE 80-90'S. SHE IS ASYMPTOMATIC. DENIES ANGINA, CHEST PRESSURE, PALPITATIONS, OR SOB. SHE IS ON RA WITH SPO2 >92%. RESPIRATIONS ARE EVEN AND UNLABORED. PT C/O MILD PRODUCTIVE COUGH THAT IS NOT FREQUENT. LUNGS HAVE MILD CRACKLES IN THE BASES NOTED. BP WAS SOFT T/O SHIFT AND HAS BEGAN TO IMPROVE THIS AFTERNOON. MOST RECENT MAP OF 74. PT WAS ASYMTPOMATIC T/O SHIFT. DENIED DIZZINESS OR LIGHT HEADEDNESS. WHEN BP WAS STABLE PT WAS ABLE TO AMBULATE TO BATHROOM WITH SBA AND TOLERATED WELL. SHE ALSO DENIED SYMPTOMS WITH AMBULATION. PT WAS MADE MEDICAL STATUS WITH TELEMETRY TODAY. WILL CONTINUE TO CARE FOR PT AND REPORT TO ONCOMING RN.
[2022-08-20 04:27] LABS: Bun/Creatinine Ratio 37.6 (12.0-20.0); Calcium, Blood 8.6 mg/dL (8.5-10.1); Creatinine, Blood 0.88 mg/dL (0.40-1.00); Potassium, Blood 3.2 mmol/L (3.5-5.5)
--- NOTE | 2022-08-20 05:55 | NUR ---
END OF SHIFT SUMMARY PT RESTED MOST OF THE NIGHT. REQUIRING ONLY ONE TIME DOSE OF PAIN MEDICATIONS PER EMAR. A/O X4 PLEASANT AND COOPERATIVE WITH CARE. RESP- SPO2 >92% ON RA. CRACKLES HEARD IN BASES, OTHERWISE CLEAR THROUGHOUT. CARDIAC- A-FIB AT BASELINE. HR 90'S-100'S. INTERMITENT PVC'S NOTED THIS SHIFT. GI,GI- INDEPENDENT AND CONTINENT OF BOWEL AND BLADDER. PT IS STABLE ON HER FEET AND USES THE RESTROOM NEEDED. INTEG- NO NEW CHANGES. WILL CONTINUE TO MONITOR PT UNTIL REPORT GIVEN TO AM RN.
[2022-08-20 08:30] VITALS: BP 10/56; BP 108/56
[2022-08-20] MEDS ORDERED: DULERA 100 MCG/13 GM INH (11:07)
[2022-08-20] MEDS ORDERED: METO50ER PO (11:21)
[2022-08-20] MEDS ORDERED: FURO20 PO (11:22)
[2022-08-20 12:04] VITALS: BP 110/61
--- NOTE | 2022-08-20 12:15 | NUR ---
PT EDUCATED ABOUT DISCHARGE WAS VERY CALM, REPORTS GOOD UNDERSTANDING OF DISCHARGE AND REPORTS UNDERSTANDING OF DISCAHRGE TEACHING. SHE IS UPDATED ABOUT CHANGE TO THE MEDICATION DULERA WHICH SHE STATES THAT "I WILL NOT BE FILLING THAT" SHE IS AGAIN REMINDED THAT IT WAS CALLED INTO [facility] IF SHE CAHNGES HER MIND ABOUT PICKING IT UP. PT THEN ON PHONE WITH FAMILY BEGINS YELLING THAT "MY BLOOD PRESSURE IS IN THE 90s" THIS RN AGAIN ENTERS ROOM FOR EDUCATION, PT'S MAP IS IN THE MID 70s, SHE IS THOROUGHLY EDUCATED ABOUT BLOOD PRESSURES AND MAP. THIS RN LEAVES ROOM. CNAs ENTER ROOM TO DC PT BEGINS SHOUTING AT CNAs ABOUT SHORT DELAY IN WHEELING HER TO THE EXIT TO MEET SPOUSE.
== END 2022-08-20 12:58 | disposition home or self-care (01) ==
LOC: ER 17:07 → PCU 17:08
PROVIDERS: Family Medicine; Internal Medicine; Student in an Organized Health Care Education/Training Program; ADMIT Student in an Organized Health Care Education/Training Program
DX: N17.9 Acute kidney failure, unspecified (principal); I95.1 Orthostatic hypotension; I50.43 Acute on chronic combined systolic (congestive) and diastolic (congestive) heart failure; I48.91 Unspecified atrial fibrillation; J44.9 Chronic obstructive pulmonary disease, unspecified; F41.1 Generalized anxiety disorder; D50.9 Iron deficiency anemia, unspecified; D72.829 Elevated white blood cell count, unspecified; Z66 Do not resuscitate; Z79.01 Long term (current) use of anticoagulants; Z88.8 Allergy status to other drugs, medicaments and biological substances
CPT/HCPCS: 36415; 51701; 80048; 80053; 81003; 83880; 84484; 85025; 93005; 93010; 94640; 94664; 94760; 94762; 96360-59; 96361-59; 99285-25; A9270; G0378; J7030

== ENCOUNTER 2024-05-04 17:39 | Emergency (ER) | payer OTHER ==
[~2024-05-04] VITALS: Ht 162.6 cm; Wt 93.9 kg
[~2024-05-04 17:39] MED LIST changes: +DULERA 100 MCG/13 GM INH; +FERROUS SULFAT325 M3 PO; +LIDOCAINE1 EACH TOP; +METO50ER PO; +Robaxin750 MG PO
[2024-05-04 19:18] LABS: BASOPHILS ABSOLUTE AUTO 0.03 K/mm3 (0.00-0.23); BASOPHILS PERCENT AUTO 0 % (0-2); EOSINOPHILS ABSOLUTE AUTO 0.09 K/mm3 (0.00-0.68); EOSINOPHILS PERCENT AUTO 1 % (0-6); Hematocrit 49.7 % (33.0-51.0); Hemoglobin 16.1 g/dL (11.5-16.0); IMMATURE GRAN ABSOLUTE AUTO 0.02 K/mm3 (0.00-0.10); IMMATURE GRAN PERCENT AUTO 0 % (0-1); LYMPHOCYTES PERCENT AUTO 21 % (21-46); MONOCYTES ABSOLUTE AUTO 1.02 K/mm3 (0.16-1.47); MONOCYTES PERCENT AUTO 14 % (4-13); Mean Corpuscular HGB 29.4 pg (26.0-34.0); Mean Corpuscular HGB Conc 32.4 g/dL (31.5-36.5); Mean Corpuscular Volume 91 fL (80-100); Mean Platelet Volume 10.9 fL (9.1-12.4); NEUTROPHILS ABSOLUTE AUTO 4.47 K/mm3 (1.96-9.15); NEUTROPHILS PERCENT AUTO 63 % (41-73); Platelet Count 194 K/mm3 (150-400); RDW Coefficient Variation 15.1 % (11.7-14.2); RDW Standard Deviation 50.1 fL (35.1-46.3); Red Blood Cell Count 5.48 M/mm3 (3.80-5.20); White Blood Cell Count 7.13 K/mm3 (4.00-11.30)
[2024-05-04 19:40] LABS: Albumin/Globulin Ratio 0.8 (0.8-1.8); Bilirubin, Total 1.4 mg/dL (0.1-1.0); Bun/Creatinine Ratio 18.8 (12.0-20.0); Calcium, Blood 8.8 mg/dL (8.5-10.1); Creatinine, Blood 0.8 mg/dL (0.40-1.00); Globulin, Blood 3.9 g/dL (2.2-4.0); Potassium, Blood 4.7 mmol/L (3.5-5.5); Total Protein, Blood 6.9 g/dL (6.4-8.2)
[2024-05-04 21:07] VITALS: BP 101/71
[2024-05-04] MEDS ORDERED: RX PP Nirmatrelvir/Ritonavir (Paxlovid) 1 CO-PACKAGE (30 Tabs) UD ONE (22:10)
== END 2024-05-04 22:55 | disposition home or self-care (01) ==
LOC: ER 17:39
PROVIDERS: Physician Assistant
DX: U07.1 COVID-19 (principal); J44.9 Chronic obstructive pulmonary disease, unspecified; I11.0 Hypertensive heart disease with heart failure; I50.20 Unspecified systolic (congestive) heart failure; F17.210 Nicotine dependence, cigarettes, uncomplicated; Z79.899 Other long term (current) drug therapy; Z88.8 Allergy status to other drugs, medicaments and biological substances
CPT/HCPCS: 71046; 80053; 85025; 99283-25

== ENCOUNTER 2024-07-06 12:03 | Day surgery (SDC) | payer OTHER ==
[~2024-07-06] VITALS: Ht 162.6 cm; Wt 93.7 kg
[~2024-07-06 12:03] MED LIST changes: +Balanced Salt Epinephrine Irrigation Solution 500 mL IR SCH; +Lidocaine HCl/Pf 1% 5 ML VIAL XX SCH; +Moxifloxacin HCL 0.5 MG/0.1 ML 0.4MLSYR RIGHTEYE SCH; +NS 500 ML IV ONE; +PHENYLEPHRINE\\TROPICAMIDE\\TETRACAINE OPHTHALMIC DILATING SOLN RIGHTEYE PRN; +Povidone-Iodine 450 DROP/30 ML Solution ONE; +Povidone-Iodine 450 DROP/30 ML Solution RIGHTEYE SCH
[2024-07-06] MEDS ORDERED: Tetracaine HCl/Pf 0.5% Opth Soln 4 ml ONE (12:04)
[2024-07-06] MEDS ORDERED: Ipratropium/Albuterol SulF 2.5-0.5MG/3 ML Amp ONE (12:30)
--- NOTE | 2024-07-06 12:36 | NUR ---
07/06/[address] IN ROOM TO ASSESS PT. PT IS WHEEZY AND LOWER LUNGS DIMINISHED. PT SPO2 IN ROOM AT 96% IN ROOM AIR. DR. KING ORDERED BREATHING NEBULIZER PRE-OP
[2024-07-06] MEDS ORDERED: NS 500 ML IV ONE (12:49)
[2024-07-06] MEDS ORDERED: FentaNYL Citrate 50 MCG/ML 2 ML Injection ONE (13:04)
[2024-07-06] MEDS ORDERED: Midazolam HCl 1MG / ML 2ML Vial ONE ×2 (13:04→13:30)
[2024-07-06 14:05] VITALS: BP 108/75
--- NOTE | 2024-07-06 14:18 | NUR ---
07/06/24 1418 Alondra Mohamud PATIENT DENIED ANY PAIN IMMEDIATELY POST OP AND DENIED ANY PAIN IN EYE T/O SDU STAY. AFTER GETTING UP FROM BED TO CHAIR SHE DID C/O 5/10 BACK PAIN. PT REPORTS SHE HAS CHRONIC BACK PAIN AND THE NERVE STIMULATOR HELPS WITH THIS. SHE TURNED THE NERVE STIMULATOR BACK ON ONCE SHE WAS IN THE RECLINER.
== END 2024-07-06 14:29 | disposition home or self-care (01) ==
LOC: ORSCSDS 12:03
PROVIDERS: Student in an Organized Health Care Education/Training Program
PROC: 08RJ3JZ Replacement of Right Lens with Synthetic Substitute, Percutaneous Approach (ICD-10-PCS; principal; 2024-07-06 14:30)
DX: H25.813 Combined forms of age-related cataract, bilateral (principal); I12.9 Hypertensive chronic kidney disease with stage 1 through stage 4 chronic kidney disease, or unspecified chronic kidney disease; N18.9 Chronic kidney disease, unspecified; I48.0 Paroxysmal atrial fibrillation; Z79.01 Long term (current) use of anticoagulants; F17.210 Nicotine dependence, cigarettes, uncomplicated; J44.9 Chronic obstructive pulmonary disease, unspecified; G47.33 Obstructive sleep apnea (adult) (pediatric); E66.9 Obesity, unspecified; Z68.35 Body mass index [BMI] 35.0-35.9, adult; Z79.899 Other long term (current) drug therapy
CPT/HCPCS: J2250; J3010; J7040; V2632

== ENCOUNTER 2024-07-20 07:42 | Day surgery (SDC) | payer OTHER ==
[~2024-07-20] VITALS: Ht 162.6 cm; Wt 93.0 kg
[~2024-07-20 07:42] MED LIST changes: +Moxifloxacin HCL 0.5 MG/0.1 ML 0.4MLSYR LEFTEYE SCH; -Moxifloxacin HCL 0.5 MG/0.1 ML 0.4MLSYR RIGHTEYE SCH; -NS 500 ML IV ONE; +PHENYLEPHRINE\\TROPICAMIDE\\TETRACAINE OPHTHALMIC DILATING SOLN LEFTEYE PRN; -PHENYLEPHRINE\\TROPICAMIDE\\TETRACAINE OPHTHALMIC DILATING SOLN RIGHTEYE PRN; +Povidone-Iodine 450 DROP/30 ML Solution LEFTEYE SCH; -Povidone-Iodine 450 DROP/30 ML Solution RIGHTEYE SCH; +Tetracaine HCl/Pf 0.5% Opth Soln 4 ml ONE
[2024-07-20] MEDS ORDERED: Midazolam HCl 1MG / ML 2ML Vial ONE (08:32)
--- NOTE | 2024-07-20 08:40 | NUR ---
07/20/24 0840 AMENA IGLESIAS CALL LIGHT WITHIN REACH. TETRACAINE IN AT 0837 IN LEFT EYE AND PLEDGETT IN AT 0838
[2024-07-20] MEDS ORDERED: FentaNYL Citrate 50 MCG/ML 2 ML Injection ONE (08:44)
[2024-07-20 09:20] VITALS: BP 119/82
--- NOTE | 2024-07-20 09:33 | NUR ---
07/20/24 0933 Marline Serrano D/C INSTRUCTIONS GIVEN TO PT, UNDERSTANDING VERBALIZED. PT DRINKING COFFEE W/O COMPLAINT. PT DENIES PAIN/NAUSEA, VSS, ON RA. PT STATES READINESS TO GO HOME. PT LEAVING W/ ALL BELONGINGS, INCLUDING EYE KIT & D/C PACKET AND WALKER. PT WHEELED TO PT PICKUP ENTRANCE WHERE SHE WILL BE DRIVEN HOME BY SPOUSE IN PRIVATE VEHICLE. NO VISIBLE SIGNS OF DISTRESS NOTED.
== END 2024-07-20 09:30 | disposition home or self-care (01) ==
LOC: ORSCSDS 07:42
PROVIDERS: Student in an Organized Health Care Education/Training Program
PROC: 08RK3JZ Replacement of Left Lens with Synthetic Substitute, Percutaneous Approach (ICD-10-PCS; principal; 2024-07-20 09:30)
DX: H25.812 Combined forms of age-related cataract, left eye (principal); Z96.1 Presence of intraocular lens; H50.111 Monocular exotropia, right eye; R06.02 Shortness of breath; F32.A Depression, unspecified; K21.9 Gastro-esophageal reflux disease without esophagitis; F17.210 Nicotine dependence, cigarettes, uncomplicated; Z79.01 Long term (current) use of anticoagulants; Z79.899 Other long term (current) drug therapy
CPT/HCPCS: J2250; J3010; V2632